=== PATIENT | female | born 1990 | race Caucasian/White ===

== ENCOUNTER 2021-09-14 18:15 | Observation (INO) | payer SELFPAY ==
[2021-09-14 18:44] VITALS: BP 128/62; PULSE 85
[2021-09-14 19:01] VITALS: BP 140/118; PULSE 189
[2021-09-14 19:16] VITALS: BP 111/55; PULSE 74
[2021-09-14 19:31] VITALS: BP 164/62; PULSE 83
[2021-09-14 19:43] VITALS: BMI 67.5
--- NOTE | 2021-09-14 19:44 | OBADM ---
This patient, Leidy Hollingsworth, admitted to the OB room [facility] for observation. Patient/family oriented to hospital policies and general routines including ID bracelet, bed and alarms, visiting hours, pain management, procedures, bathroom and other care routines, personal items, smoking policy, room service/diet, and visiting hours. Patient/Family are encouraged to report perceived risks to care and to ask questions if they do not understand what they are told or what they should do.
[2021-09-14 19:46] VITALS: BP 138/79; PULSE 81
--- NOTE | 2021-10-03 16:59 | PM.OBTRLD ---
OB - Triage/Final Diagnosis Visit Information Comments/Additional reasons for admission: I have assessed the risk for this patient, Leidy Hollingsworth, and determined that she would benefit from observation care. Final Diagnosis (1) False labor: Code(s): O47.9 - False labor, unspecified Status: Acute
== END 2021-09-14 22:15 | disposition home or self-care (01) ==
PROVIDERS: Admitting Provider Obstetrics & Gynecology; Visit Provider Obstetrics & Gynecology
DX: O47.9 False labor, unspecified (principal); Z3A.00 Weeks of gestation of pregnancy not specified
CPT/HCPCS: G0378; G0379